=== PATIENT | male | born 1995 | race Caucasian/White ===

== ENCOUNTER 2018-02-13 11:22 | Emergency (ER) | payer MEDICAID ==
[~2018-02-13] VITALS: Ht 167.6 cm; Wt 60.0 kg
[2018-02-13 11:34] VITALS: BP 117/73
[2018-02-13] MEDS ORDERED: ACYC-202 PO (11:47)
== END 2018-02-13 12:07 | disposition home or self-care (01) ==
LOC: ER 11:23
DX: K13.79 Other lesions of oral mucosa (principal); J45.909 Unspecified asthma, uncomplicated; F12.90 Cannabis use, unspecified, uncomplicated; Z90.49 Acquired absence of other specified parts of digestive tract
CPT/HCPCS: 99283

== ENCOUNTER 2023-02-01 06:36 | Emergency (ER) | payer MEDICAID ==
[~2023-02-01] VITALS: Ht 165.1 cm; Wt 56.8 kg
[2023-02-01 06:43] VITALS: BP 131/89
[2023-02-01] MEDS ORDERED: PENI500T2 PO (06:48)
== END 2023-02-01 07:59 | disposition home or self-care (01) ==
LOC: ER 06:37
DX: K04.7 Periapical abscess without sinus (principal); J45.909 Unspecified asthma, uncomplicated; F12.90 Cannabis use, unspecified, uncomplicated; Z72.89 Other problems related to lifestyle; Z79.899 Other long term (current) drug therapy
CPT/HCPCS: 99283